=== PATIENT | female | born 1955 | race Hispanic/Latino ===

== ENCOUNTER → 2017-07-31 | Day surgery (SDC) | payer BC ==
[~2017-07-31] MED LIST: AMBIEN5 MG PO; CLONAZEPAM1 M1; ESTRADIOL1 MG PO; FENTANYL CITRATE/PF 100MCG/2 ML INJ ONE; HYDROCODONE; MIDAZOLAM HCL 2 MG/2 ML VIAL ONE; NORCO 5-325 TA1 EACH PO; OMEPRAZOLE40 MG PO; ONDANSETRON HCL INJ 2 MG/ML VIAL ONE; PROPOFOL IV EMULSION 10 MG/ML 20 ML VIAL ONE; SOMA250 MG; ZOCOR PO; metoprolol PO
== END | disposition home or self-care (01) ==
LOC: OR 09:49
PROVIDERS: ATTEND Internal Medicine Gastroenterology
DX: Z12.11 Encounter for screening for malignant neoplasm of colon (principal); K59.00 Constipation, unspecified; I10 Essential (primary) hypertension; E78.5 Hyperlipidemia, unspecified; F17.200 Nicotine dependence, unspecified, uncomplicated; Z80.0 Family history of malignant neoplasm of digestive organs; Z83.79 Family history of other diseases of the digestive system
CPT/HCPCS: 45378; 93005; J2250; J2405; G0121

== ENCOUNTER → 2017-08-02 | Outpatient (CLI) | payer BC ==
[~2017-08-02] MED LIST changes: -FENTANYL CITRATE/PF 100MCG/2 ML INJ ONE; +GADOBUTROL 10 MMOL/10 ML VIAL IV ONE; -MIDAZOLAM HCL 2 MG/2 ML VIAL ONE; -ONDANSETRON HCL INJ 2 MG/ML VIAL ONE; -PROPOFOL IV EMULSION 10 MG/ML 20 ML VIAL ONE
[2017-08-02 11:30] LABS: BLOOD UREA NITROGEN 8 mg/dL (7-26); BUN/CREATININE RATIO 12 (6-25); CREATININE, SERUM 0.67 mg/dL (0.57-1.11); EST GLOMERULAR FILTRATION RATE > 60 ML/MIN (60-)
--- NOTE | 2017-08-02 14:24 | Diagnostic Imaging Report ---
PROCEDURE: MRI ABDOMEN WOW TECHNIQUE: Axial T1 in and out of phase, axial T2, fat-sat, coronal T2 with and without fat-sat, axial ASSETT, axial DWI, and ADC MR images of the abdomen were performed after the intravenous administration of 5.5 cc of gadolinium. Axial T1, GRE dynamic images in precontrast, arterial, venous and delayed phases were obtained. Subtraction images were also performed. COMPARISON: None. INDICATIONS: Abdomen pain FINDINGS: LOWER THORAX: Lung bases are clear. LIVER: The liver is normal in size, measuring 10.9 cm in the right clavicular line and shows normal contour. No hepatic signal abnormality. 5-6 mm T2 hyperintense, nonenhancing lesion in hepatic segment (series 7, image 18 in series 13, image 119), consistent with a simple cyst. No other focal hepatic lesions. BILIARY: Mild central intrahepatic biliary ductal dilation, predominantly involving the left hepatic duct. Moderate to marked dilation of the common bile duct, which measures approximately 1.7 cm at the matty hepatis, and 1.0 cm at the pancreatic duct, which is increased since prior CT dated 03/26/2011. No intraluminal filling defects. Normal luminal contour, and taper into the ampulla. Cholecystectomy clips. PANCREAS: No mass or ductal dilatation. SPLEEN: No splenomegaly. ADRENALS: No nodules. KIDNEYS: No hydronephrosis or mass in the imaged portion of the kidneys. GI TRACT: Visualized bowel shows no dilation or obstruction. PERITONEUM / RETROPERITONEUM: No upper abdominal free fluid. LYMPH NODES: No upper abdominal lymphadenopathy. VESSELS: The celiac trunk, superior and inferior mesenteric, and bilateral renal arteries are patent. Portal, superior mesenteric, and splenic veins are patent. BONES AND SOFT TISSUES: Stable leftward curvature of the lumbar spine, with associated degenerative changes. No bone marrow abnormalities. Soft tissues are grossly unremarkable. IMPRESSION: 1. Mild central intrahepatic biliary ductal dilation, predominantly involving the left hepatic duct. Moderate to marked dilation of the common bile duct, which is more prominent than on prior exam, however, there is no MR evidence of choledocholithiasis or focal mass. Normal luminal contour, and tapering to the ampulla. Findings may represent post cholecystectomy status. 2. Otherwise, essentially unremarkable abdominal MRI Lokesh Jimenez M.D. Dictated by: Lokesh Jimenez M.D. on 08/02/2017 at 14:32 Electronically approved by: Lokesh Jimenez M.D. on 08/02/2017 at 14:32
--- NOTE | 2017-08-02 14:35 | Diagnostic Imaging Report ---
PROCEDURE:MRI PELVIS WITHOUT AND WITH CONTRAST COMPARISON:[facility], CT, CT ABDOMEN/PELVIS WO, 03/26/2011, 4:32. INDICATIONS:Abdomen pain TECHNIQUE:Axial and sagittal T2, coronal, and axial T1, sagittal, T2 fat sat images of the pelvis were performed before the intravenous administration of 5.5 cc of gadolinium. Axial T1 postcontrast images of the pelvis were obtained. FINDINGS: PELVIC ORGANS: Bladder is moderately distended and shows no focal lesion or wall thickening. Metallic susceptibility artifact at the right side and anterior to the bladder (series 13, image is 12-13), consistent with previously visualized postoperative changes and metallic clips. Uterus is absent. Ovaries are not visualized. No adnexal masses. GI TRACT: No bowel dilation or evidence of obstruction. LYMPH NODES: No distal retroperitoneal, pelvic, or inguinal adenopathy. VESSELS: Normal flow voids are identified. BONES AND SOFT TISSUES: No abnormal bone marrow signal. T2 hyperintense nonenhancing Tarlov's cysts are noted at S2. CONCLUSION: 1. Essentially unremarkable exam. Status post hysterectomy. The ovaries are not visualized and may be absent. Lokesh Jimenez M.D. Dictated by: Lokesh Jimenez M.D. on 08/02/2017 at 14:43 Electronically approved by: Lokesh Jimenez M.D. on 08/02/2017 at 14:43
== END ==
LOC: MRI 10:26
PROVIDERS: ATTEND Internal Medicine Gastroenterology
DX: R10.31 Right lower quadrant pain (principal)
CPT/HCPCS: 36415; 72197; 74183; 82565; 84520; A9585

== ENCOUNTER → 2020-05-03 | Day surgery (SDC) | payer MEDICARE, OTHER ==
[2020-04-29 11:23] LABS: BASOPHILS # (AUTO) 0.1 (0.0-0.1); EOSINOPHILS # (AUTO) 0.1 (0.0-0.4); EOSINOPHILS % 1.5 % (0.0-6.0); HEMATOCRIT 34.5 % (34.2-44.1); HEMOGLOBIN 10.7 g/dL (12.0-16.0); LYMPHOCYTES # (AUTO) 2.3 (1.0-3.2); LYMPHOCYTES % 33.6 % (18.0-39.1); MEAN CORPUSCULAR HEMOGLOBIN 26.5 pg (28-32); MEAN CORPUSCULAR VOLUME 85.4 fL (81-99); MONOCYTES # (AUTO) 0.5 (0.2-0.8); MONOCYTES % 7.7 % (4.4-11.3); NEUTROPHILS # (AUTO) 3.8 (2.1-6.9); NEUTROPHILS % 55.9 % (38.7-80.0); PLATELET COUNT 243 x10e3/uL (140-360); RED BLOOD COUNT 4.04 x10e6/uL (3.6-5.1); RED CELL DISTRIBUTION WIDTH 13.8 % (11.7-14.4)
[~2020-05-03] MED LIST changes: +BENAZEPRIL HCL5 MG PO; +BUPROPION HCL100 MG PO; +CRESTOR10 MG PO; +DICYCLOMINE HCL20 MG PO; +EPHEDRINE SULFATE INJ 50 MG/ML VIAL ONE; +FAMOTIDINE20 MG PO; +FENTANYL CITRATE/PF 100MCG/2 ML INJ ONE; -GADOBUTROL 10 MMOL/10 ML VIAL IV ONE; +GLYCOPYRROLATE INJ 0.2 MG/ML VIAL ONE; +LIDOCAINE HCL 2% LOCAL INJ 5 ML SDV VIAL INJ ONE; +MIDAZOLAM HCL 2 MG/2 ML VIAL ONE; +MIRALAX17 GM PO; +PROPOFOL IV EMULSION 10 MG/ML 20 ML VIAL ONE; +SOMA350 MG PO
[2020-05-03 11:00] VITALS: BP 108/57
== END | disposition home or self-care (01) ==
LOC: OR 06:44
PROVIDERS: ATTEND Internal Medicine Gastroenterology
DX: K29.50 Unspecified chronic gastritis without bleeding (principal); D12.2 Benign neoplasm of ascending colon; K31.89 Other diseases of stomach and duodenum; K21.9 Gastro-esophageal reflux disease without esophagitis; K57.30 Diverticulosis of large intestine without perforation or abscess without bleeding; K64.8 Other hemorrhoids; K44.9 Diaphragmatic hernia without obstruction or gangrene; K60.2 Anal fissure, unspecified; Z01.810 Encounter for preprocedural cardiovascular examination; Z01.812 Encounter for preprocedural laboratory examination
CPT/HCPCS: 36415; 43239; 45384; 85025; 88305; 88312; 88342; 93005; J2001; J2250; J2704; J3010; 45385

== ENCOUNTER 2020-08-21 11:17 | Emergency (ER) | payer MEDICARE ==
[~2020-08-21] VITALS: Ht 165.1 cm; Wt 63.5 kg
[~2020-08-21 11:17] MED LIST changes: -EPHEDRINE SULFATE INJ 50 MG/ML VIAL ONE; -FENTANYL CITRATE/PF 100MCG/2 ML INJ ONE; -GLYCOPYRROLATE INJ 0.2 MG/ML VIAL ONE; -LIDOCAINE HCL 2% LOCAL INJ 5 ML SDV VIAL INJ ONE; -MIDAZOLAM HCL 2 MG/2 ML VIAL ONE; -PROPOFOL IV EMULSION 10 MG/ML 20 ML VIAL ONE
[2020-08-21] MEDS ORDERED: SODIUM CHLORIDE 0.9% 1000ML 1,000 ML IV STA (11:28)
[2020-08-21] MEDS ORDERED: ONDANSETRON HCL INJ 2MG/ML 2ML 2 MG/ML VIAL IV NR ×2 (11:30→13:15)
[2020-08-21] MEDS ORDERED: PANTOPRAZOLE 40 MG 10ML VIAL IV NR (11:30)
[2020-08-21 11:55] LABS: BASOPHILS % 0.7 % (0.0-1.0); EOSINOPHILS # (AUTO) 0.1 (0.0-0.4); EOSINOPHILS % 2.3 % (0.0-6.0); HEMATOCRIT 33.3 % (34.2-44.1); HEMOGLOBIN 10.1 g/dL (12.0-16.0); LYMPHOCYTES # (AUTO) 2.1 (1.0-3.2); LYMPHOCYTES % 36.2 % (18.0-39.1); MEAN CORPUSCULAR HEMOGLOBIN 23.6 pg (28-32); MEAN CORPUSCULAR HGB CONC 30.3 g/dL (31-35); MEAN CORPUSCULAR VOLUME 77.8 fL (81-99); MONOCYTES # (AUTO) 0.5 (0.2-0.8); NEUTROPHILS # (AUTO) 2.9 (2.1-6.9); NEUTROPHILS % 51.6 % (38.7-80.0); PLATELET COUNT 253 x10e3/uL (140-360); RED BLOOD COUNT 4.28 x10e6/uL (3.6-5.1); RED CELL DISTRIBUTION WIDTH 15.9 % (11.7-14.4)
[2020-08-21 12:00] LABS: CLARITY,URINE CLEAR (CLEAR); COLOR,URINE YELLOW (YELLOW); LEUKOCYTE ESTERASE ,URINE NEGATIVE (NEGATIVE); NITRITE,URINE NEGATIVE (NEGATIVE)
[2020-08-21 12:01] LABS: KETONES,URINE NEGATIVE (NEGATIVE); PROTEIN,URINE DIPSTICK NEGATIVE (NEGATIVE); URINE UROBILINOGEN 0.2 mg/dL (0.2 - 1)
[2020-08-21 12:05] LABS: INR 0.92; PARTIAL THROMBOPLASTIN TIME 31.7 seconds (23.8-35.5); PROTHROMBIN TIME 12.9 seconds (11.9-14.5)
[2020-08-21 12:08] LABS: EPITHELIAL CELLS,URINE FEW /LPF; MUCUS,URINE FEW (RARE); RBC,URINE 0-5 /HPF (0-5); WBC,URINE (MAN) 0-5 /HPF (0-5)
[2020-08-21 12:13] LABS: ALANINE AMINOTRANSFERASE 29 IU/L (0-55); ALBUMIN 3.9 g/dL (3.5-5.0); ALBUMIN/GLOBULIN RATIO 1.4 (0.8-2.0); ALKALINE PHOSPHATASE 69 IU/L (40-150); BLOOD UREA NITROGEN 10 mg/dL (7-26); BUN/CREATININE RATIO 14 (6-25); CALCIUM 8.1 mg/dL (8.4-10.2); CARBON DIOXIDE 25 mmol/L (22-29); CHLORIDE 105 mmol/L (98-107); CREATINE KINASE 156 IU/L (29-168); CREATININE, SERUM 0.69 mg/dL (0.57-1.11); EST GLOMERULAR FILTRATION RATE > 60 ML/MIN (60-); GLUCOSE 88 mg/dL (74-118); LIPASE 74 U/L (8-78); MAGNESIUM 1.7 MG/DL (1.3-2.1); SODIUM 138 mmol/L (136-145)
[2020-08-21] MEDS ORDERED: MORPHINE SULFATE INJ 2 MG/ML SYR IV NR (13:15)
[2020-08-21] MEDS ORDERED: DICYCLOMINE HCL20 MG PO (13:42)
[2020-08-21] MEDS ORDERED: ONDANSETRON ODT8 MG PO (13:42)
== END 2020-08-21 14:07 | disposition home or self-care (01) ==
LOC: ER 11:34
DX: R10.30 Lower abdominal pain, unspecified (principal); K52.9 Noninfective gastroenteritis and colitis, unspecified; I10 Essential (primary) hypertension; E78.5 Hyperlipidemia, unspecified; G47.00 Insomnia, unspecified; F41.9 Anxiety disorder, unspecified; F32.9 Major depressive disorder, single episode, unspecified; Z98.0 Intestinal bypass and anastomosis status; Z11.52 Encounter for screening for COVID-19
CPT/HCPCS: 36415; 71045; 74176; 80053; 81001; 82550; 82553; 83690; 83735; 84484; 85025; 85610; 85730; 87086; 99284; C9113; J2270; J2405; J7030; U0002

== ENCOUNTER 2020-11-24 14:10 | Inpatient (IN) | payer MEDICARE ==
[~2020-11-24] VITALS: Ht 165.1 cm; Wt 63.5 kg
[~2020-11-24 14:10] MED LIST changes: +ONDANSETRON ODT8 MG PO
[2020-11-24 14:45] LABS: BASOPHILS # (AUTO) 0.1 (0.0-0.1); EOSINOPHILS # (AUTO) 0.2 (0.0-0.4); EOSINOPHILS % 2.6 % (0.0-6.0); HEMATOCRIT 29.8 % (34.2-44.1); LYMPHOCYTES % 34.1 % (18.0-39.1); MEAN CORPUSCULAR HEMOGLOBIN 22.2 pg (28-32); MEAN CORPUSCULAR HGB CONC 30.2 g/dL (31-35); MEAN CORPUSCULAR VOLUME 73.6 fL (81-99); MONOCYTES # (AUTO) 0.5 (0.2-0.8); NEUTROPHILS # (AUTO) 3.2 (2.1-6.9); NEUTROPHILS % 54.1 % (38.7-80.0); PLATELET COUNT 257 x10e3/uL (140-360); RED BLOOD COUNT 4.05 x10e6/uL (3.6-5.1); RED CELL DISTRIBUTION WIDTH 17.4 % (11.7-14.4)
[2020-11-24 15:03] LABS: ALANINE AMINOTRANSFERASE 23 IU/L (0-55); ALBUMIN 3.8 g/dL (3.5-5.0); ALBUMIN/GLOBULIN RATIO 1.4 (0.8-2.0); ALKALINE PHOSPHATASE 76 IU/L (40-150); ANION GAP 13.2 mmol/L (8-16); BLOOD UREA NITROGEN 15 mg/dL (7-26); BUN/CREATININE RATIO 20 (6-25); CARBON DIOXIDE 24 mmol/L (22-29); CHLORIDE 108 mmol/L (98-107); CREATININE, SERUM 0.74 mg/dL (0.57-1.11); EST GLOMERULAR FILTRATION RATE > 60 ML/MIN (60-); GLUCOSE 92 mg/dL (74-118); POTASSIUM 4.2 mmol/L (3.5-5.1); SODIUM 141 mmol/L (136-145)
[2020-11-24 15:05] LABS: CLARITY,URINE CLEAR (CLEAR); COLOR,URINE YELLOW (YELLOW); LEUKOCYTE ESTERASE ,URINE NEGATIVE (NEGATIVE)
[2020-11-24 15:06] LABS: BACTERIA,URINE FEW /HPF; EPITHELIAL CELLS,URINE FEW /LPF; KETONES,URINE NEGATIVE (NEGATIVE); NITRITE,URINE NEGATIVE (NEGATIVE); PROTEIN,URINE DIPSTICK NEGATIVE (NEGATIVE); RBC,URINE 0-5 /HPF (0-5); URINE UROBILINOGEN 0.2 mg/dL (0.2 - 1); WBC,URINE (MAN) 0-5 /HPF (0-5)
[2020-11-24] MEDS ORDERED: MORPHINE SULFATE INJ 4 MG/ML INJ 1ML IV PRN (16:45)
[2020-11-24] MEDS ORDERED: MORPHINE SULFATE INJ 2 MG/ML SYR IV PRN (16:45)
[2020-11-24] MEDS ORDERED: HYDROMORPHONE 1MG/1ML INJ IV STA (16:48)
[2020-11-24] MEDS: ONDANSETRON HCL INJ 2MG/ML 2ML 2 MG/ML VIAL IV PRN ×2 (17:12→23:20)
[2020-11-24] MEDS: SODIUM CHLORIDE 0.9% 1000ML 1,000 ML IV SCH (17:12)
[2020-11-24] MEDS ORDERED: BENAZEPRIL HCL10 MG PO (17:43)
[2020-11-24] MEDS ORDERED: HYDROCHLOROTHIA25 MG PO (17:43)
[2020-11-24] MEDS ORDERED: DICYCLOMINE HCL10 MG PO (17:45)
[2020-11-24] MEDS ORDERED: CRESTOR20 MG PO (17:45)
[2020-11-24] MEDS ORDERED: LOMOTIL TABLET1 EACH PO (17:45)
[2020-11-24 19:38] VITALS: BP 125/72
[2020-11-24 20:00] VITALS: BP 125/72
[2020-11-24 21:00] VITALS: BP 125/72
[2020-11-24] MEDS ORDERED: ACETAMINOPHEN 325 MG TAB PO PRN (23:15)
[2020-11-24] MEDS ORDERED: CARISOPRODOL 350 MG TAB PO PRN (23:15)
[2020-11-24] MEDS ORDERED: POLYETHYLENE GLYCOL 3350 17 GM PACK PO PRN (23:15)
[2020-11-24] MEDS ORDERED: DICYCLOMINE HCL 10 MG CAP PO PRN (23:15)
[2020-11-24] MEDS: MORPHINE SULFATE INJ 2 MG/ML SYR IV PRN (23:20)
[2020-11-24] MEDS ORDERED: HYDRALAZINE HCL 20 MG/ML VIAL IV PRN (23:30)
[2020-11-25] VITALS (7 sets, daily range): BP systolic 116–141; BP diastolic 58–76
[2020-11-25] MEDS: HYDROCODONE/APAP 5MG-325MG TAB PO PRN ×2 (00:06→12:06)
[2020-11-25] MEDS: SODIUM CHLORIDE 0.9% 1000ML 1,000 ML IV SCH ×3 (00:45→18:34)
[2020-11-25] MEDS ORDERED: POTASSIUM CHLO20 ME1 PO (01:19)
[2020-11-25] MEDS ORDERED: MIRAPEX0.25 MG PO (01:19)
[2020-11-25] MEDS ORDERED: FLAGYL500 MG PO (01:19)
[2020-11-25] MEDS ORDERED: PROMETHAZINE HC25 M1 PO (01:19)
[2020-11-25] MEDS ORDERED: ZOLPIDEM TARTRAT5 MG PO (01:19)
[2020-11-25] MEDS: LORAZEPAM INJ 2 MG/ML VIAL IV PRN ×2 (02:48→23:40)
[2020-11-25] MEDS: MORPHINE SULFATE INJ 2 MG/ML SYR IV PRN ×2 (04:46→09:30)
[2020-11-25] MEDS: ONDANSETRON HCL INJ 2MG/ML 2ML 2 MG/ML VIAL IV PRN ×2 (04:46→09:30)
[2020-11-25 06:47] LABS: BASOPHILS % 0.6 % (0.0-1.0); EOSINOPHILS # (AUTO) 0.1 (0.0-0.4); EOSINOPHILS % 2.5 % (0.0-6.0); HEMATOCRIT 29.4 % (34.2-44.1); HEMOGLOBIN 8.8 g/dL (12.0-16.0); LYMPHOCYTES # (AUTO) 1.9 (1.0-3.2); LYMPHOCYTES % 39.4 % (18.0-39.1); MEAN CORPUSCULAR HEMOGLOBIN 22.2 pg (28-32); MEAN CORPUSCULAR HGB CONC 29.9 g/dL (31-35); MEAN CORPUSCULAR VOLUME 74.2 fL (81-99); MONOCYTES # (AUTO) 0.4 (0.2-0.8); MONOCYTES % 8.5 % (4.4-11.3); NEUTROPHILS # (AUTO) 2.4 (2.1-6.9); NEUTROPHILS % 48.8 % (38.7-80.0); PLATELET COUNT 221 x10e3/uL (140-360); RED BLOOD COUNT 3.96 x10e6/uL (3.6-5.1); RED CELL DISTRIBUTION WIDTH 17.4 % (11.7-14.4)
[2020-11-25 07:09] LABS: ALANINE AMINOTRANSFERASE 21 IU/L (0-55); ALBUMIN 3.4 g/dL (3.5-5.0); ALBUMIN/GLOBULIN RATIO 1.4 (0.8-2.0); ALKALINE PHOSPHATASE 71 IU/L (40-150); ANION GAP 12.3 mmol/L (8-16); BLOOD UREA NITROGEN 13 mg/dL (7-26); BUN/CREATININE RATIO 19 (6-25); CALCIUM 7.9 mg/dL (8.4-10.2); CARBON DIOXIDE 26 mmol/L (22-29); CHLORIDE 110 mmol/L (98-107); EST GLOMERULAR FILTRATION RATE > 60 ML/MIN (60-); GLUCOSE 90 mg/dL (74-118); POTASSIUM 4.3 mmol/L (3.5-5.1); SODIUM 144 mmol/L (136-145)
[2020-11-25 09:23] LABS: FERRITIN 7.51 ng/mL (4.63-204.00)
[2020-11-25] MEDS: PANTOPRAZOLE 40 MG 10ML VIAL IV SCH ×2 (09:29→17:00)
[2020-11-25] MEDS: BENAZEPRIL HCL 10 MG TAB PO SCH (09:30)
[2020-11-25] MEDS ORDERED: DICYCLOMINE HCL 20 MG TAB PO PRN (16:15)
[2020-11-25] MEDS ORDERED: FERROUS SULFATE 325 MG TAB PO ONE (17:00)
[2020-11-25 17:12] LABS: THYROID STIMULATING HORMONE 2.071 uIU/mL (0.350-4.940)
[2020-11-25] MEDS ORDERED: TRAZODONE HCL 50 MG TAB PO SCH (23:45)
[2020-11-26] MEDS: SODIUM CHLORIDE 0.9% 1000ML 1,000 ML IV SCH ×2 (05:12→08:45)
[2020-11-26 07:05] LABS: BASOPHILS % 0.6 % (0.0-1.0); EOSINOPHILS # (AUTO) 0.1 (0.0-0.4); EOSINOPHILS % 0.9 % (0.0-6.0); HEMATOCRIT 30.3 % (34.2-44.1); HEMOGLOBIN 9.1 g/dL (12.0-16.0); LYMPHOCYTES # (AUTO) 1.2 (1.0-3.2); LYMPHOCYTES % 22.5 % (18.0-39.1); MEAN CORPUSCULAR HEMOGLOBIN 22.1 pg (28-32); MEAN CORPUSCULAR VOLUME 73.5 fL (81-99); MONOCYTES # (AUTO) 0.4 (0.2-0.8); MONOCYTES % 7.1 % (4.4-11.3); NEUTROPHILS # (AUTO) 3.7 (2.1-6.9); NEUTROPHILS % 68.3 % (38.7-80.0); PLATELET COUNT 202 x10e3/uL (140-360); RED BLOOD COUNT 4.12 x10e6/uL (3.6-5.1); RED CELL DISTRIBUTION WIDTH 17.2 % (11.7-14.4)
[2020-11-26 07:25] LABS: ANION GAP 13.9 mmol/L (8-16); BLOOD UREA NITROGEN 6 mg/dL (7-26); BUN/CREATININE RATIO 9 (6-25); CARBON DIOXIDE 21 mmol/L (22-29); CHLORIDE 112 mmol/L (98-107); CREATININE, SERUM 0.65 mg/dL (0.57-1.11); EST GLOMERULAR FILTRATION RATE > 60 ML/MIN (60-); GLUCOSE 90 mg/dL (74-118); POTASSIUM 3.9 mmol/L (3.5-5.1); SODIUM 143 mmol/L (136-145)
[2020-11-26 07:48] VITALS: BP 141/69
[2020-11-26 08:00] VITALS: BP 141/69
[2020-11-26] MEDS: PANTOPRAZOLE 40 MG 10ML VIAL IV SCH (08:55)
[2020-11-26] MEDS: BENAZEPRIL HCL 10 MG TAB PO SCH (08:56)
[2020-11-26] MEDS ORDERED: ASCORBIC ACID 500 MG TAB PO SCH (09:00)
[2020-11-26 11:41] VITALS: BP 142/67
== END 2020-11-26 15:35 | disposition home or self-care (01) | DRG 390 ==
LOC: ER 14:40 → ERHOLD 16:46 → MED/SURG3 18:04 → OBSVTOIN 11-25 14:09
PROVIDERS: ADMIT Internal Medicine; ATTEND Internal Medicine
DX: K56.51 Intestinal adhesions [bands], with partial obstruction (principal); I10 Essential (primary) hypertension; E78.5 Hyperlipidemia, unspecified; D64.9 Anemia, unspecified; Z20.822 Contact with and (suspected) exposure to COVID-19; F32.9 Major depressive disorder, single episode, unspecified; F41.9 Anxiety disorder, unspecified; G89.29 Other chronic pain; Z91.041 Radiographic dye allergy status; Z91.040 Latex allergy status; K29.70 Gastritis, unspecified, without bleeding; K44.9 Diaphragmatic hernia without obstruction or gangrene; K64.8 Other hemorrhoids
CPT/HCPCS: 36415; 74176; 80048; 80053; 81001; 82150; 82728; 83540; 83690; 83735; 84443; 84466; 85025; 93005; 99284; G0378; J1170; J2060; J2270; J2405; J7030; U0002

== ENCOUNTER → 2022-06-13 | Day surgery (SDC) | payer MEDICARE ==
[2022-06-12 14:21] LABS: BASOPHILS % 0.6 % (0.0-1.0); EOSINOPHILS # (AUTO) 0.1 (0.0-0.4); EOSINOPHILS % 2.2 % (0.0-6.0); HEMATOCRIT 29.4 % (34.2-44.1); HEMOGLOBIN 7.9 g/dL (12.0-16.0); LYMPHOCYTES # (AUTO) 2.1 (1.0-3.2); LYMPHOCYTES % 32.6 % (18.0-39.1); MEAN CORPUSCULAR HEMOGLOBIN 19.2 pg (28-32); MEAN CORPUSCULAR HGB CONC 26.9 g/dL (31-35); MEAN CORPUSCULAR VOLUME 71.4 fL (81-99); MONOCYTES # (AUTO) 0.5 (0.2-0.8); MONOCYTES % 7.8 % (4.4-11.3); NEUTROPHILS # (AUTO) 3.7 (2.1-6.9); NEUTROPHILS % 56.5 % (38.7-80.0); PLATELET COUNT 225 x10e3/uL (140-360); RED BLOOD COUNT 4.12 x10e6/uL (3.6-5.1); RED CELL DISTRIBUTION WIDTH 17.1 % (11.7-14.4)
[~2022-06-13] MED LIST changes: +BENAZEPRIL HCL10 MG PO; +CITRACAL SOFT1 EACH PO; +CRESTOR20 MG PO; +DICYCLOMINE HCL10 MG PO; +FLAGYL500 MG PO; +HYDROCHLOROTHIA25 MG PO; +LOMOTIL TABLET1 EACH PO; +MIRAPEX0.25 MG PO; +POTASSIUM CHLO20 ME1 PO; +PROBIOTIC & AC1 EACH PO; +PROMETHAZINE HC25 M1 PO; +PROPOFOL IV EMULSION 10 MG/ML 20 ML VIAL ONE; +ZOLPIDEM TARTRAT5 MG PO
[2022-06-13 11:07] VITALS: BP 128/70
== END | disposition home or self-care (01) ==
LOC: OR 07:01
PROVIDERS: ATTEND Internal Medicine Gastroenterology
DX: K31.A12 Gastric intestinal metaplasia without dysplasia, involving the body (corpus) (principal); K29.50 Unspecified chronic gastritis without bleeding; K44.9 Diaphragmatic hernia without obstruction or gangrene; K57.90 Diverticulosis of intestine, part unspecified, without perforation or abscess without bleeding; K60.2 Anal fissure, unspecified; R19.5 Other fecal abnormalities; R19.4 Change in bowel habit; R15.9 Full incontinence of feces; K64.8 Other hemorrhoids; D64.9 Anemia, unspecified; M06.9 Rheumatoid arthritis, unspecified; I10 Essential (primary) hypertension; E78.5 Hyperlipidemia, unspecified; I49.1 Atrial premature depolarization; Z91.041 Radiographic dye allergy status; Z91.040 Latex allergy status; Z01.810 Encounter for preprocedural cardiovascular examination; Z01.812 Encounter for preprocedural laboratory examination; Z79.899 Other long term (current) drug therapy
CPT/HCPCS: 36415; 43239; 85025; 93005; J2704

== ENCOUNTER 2024-06-05 15:05 | Emergency (ER) | payer MEDICARE ==
[~2024-06-05] VITALS: Ht 165.1 cm; Wt 65.3 kg
[~2024-06-05 15:05] MED LIST changes: +LEVOFLOXACIN500 MG PO; -PROPOFOL IV EMULSION 10 MG/ML 20 ML VIAL ONE
[2024-06-05 15:38] VITALS: TEMP 98
[2024-06-05 16:12] LABS: BASOPHILS % 0.2 % (0.0-1.0); EOSINOPHILS # (AUTO) 0.1 (0.0-0.4); EOSINOPHILS % 1.4 % (0.0-6.0); HEMATOCRIT 39.2 % (34.2-44.1); HEMOGLOBIN 12.3 g/dL (12.0-16.0); LYMPHOCYTES # (AUTO) 1.6 (1.0-3.2); LYMPHOCYTES % 32.3 % (18.0-39.1); MEAN CORPUSCULAR HEMOGLOBIN 29.1 pg (28-32); MEAN CORPUSCULAR HGB CONC 31.4 g/dL (31-35); MEAN CORPUSCULAR VOLUME 92.9 fL (81-99); MONOCYTES # (AUTO) 0.5 (0.2-0.8); MONOCYTES % 9.5 % (4.4-11.3); NEUTROPHILS # (AUTO) 2.7 (2.1-6.9); NEUTROPHILS % 56.2 % (38.7-80.0); PLATELET COUNT 190 x10e3/uL (140-360); RED BLOOD COUNT 4.22 x10e6/uL (3.6-5.1); RED CELL DISTRIBUTION WIDTH 13.6 % (11.7-14.4); WHITE BLOOD COUNT 4.86 x10e3/uL (4.8-10.8)
[2024-06-05] MEDS ORDERED: Morphine 4mg INJECTION 4 MG/ML INJ IV ONE (16:15)
[2024-06-05 16:23] LABS: ALBUMIN 3.6 g/dL (3.5-5.0); ALBUMIN/GLOBULIN RATIO 1.4 (0.8-2.0); ANION GAP 16.7 mmol/L (8-16); BILIRUBIN,TOTAL 0.6 mg/dL (0.2-1.2); CALCIUM 8.7 mg/dL (8.4-10.2); CREATININE, SERUM 0.68 mg/dL (0.57-1.11); POTASSIUM 3.7 mmol/L (3.5-5.1); TOTAL PROTEIN 6.2 g/dL (6.5-8.1)
[2024-06-05] MEDS: SODIUM CHLORIDE 0.9% 1000ML 1,000 ML IV ONE (18:43)
[2024-06-05] MEDS: KETOROLAC TROMETHAMINE 30 MG/ML VIAL IV STA (18:43)
[2024-06-05] MEDS: METOCLOPRAMIDE HCL 10 MG/2ML VIAL IV ONE (18:44)
[2024-06-05 18:48] VITALS: PULSE 61; RESP 16
[2024-06-05] MEDS ORDERED: CEPHALEXIN500 MG PO (18:55)
[2024-06-05 21:00] VITALS: BP 137/73; PULSE 61; RESP 16; TEMP 98; O2SAT 100
== END 2024-06-05 19:38 | disposition home or self-care (01) ==
LOC: ER 16:00
DX: R19.7 Diarrhea, unspecified (principal); R10.30 Lower abdominal pain, unspecified; R11.0 Nausea; I10 Essential (primary) hypertension; R73.03 Prediabetes; E78.5 Hyperlipidemia, unspecified; G47.00 Insomnia, unspecified
CPT/HCPCS: 36415; 74176; 80053; 83690; 85025; 99284; J1885; J2765; J7030

== ENCOUNTER 2025-01-21 17:07 | Emergency (ER) | payer MEDICARE ==
[~2025-01-21] VITALS: Ht 152.4 cm; Wt 65.8 kg
[~2025-01-21 17:07] MED LIST changes: +CEPHALEXIN500 MG PO
[2025-01-21 18:59] LABS: CLARITY,URINE SL CLOUDY (CLEAR); COLOR,URINE YELLOW (YELLOW)
[2025-01-21 19:00] LABS: BILIRUBIN,URINE NEGATIVE (NEGATIVE); GLUCOSE, URINE NEGATIVE (NEGATIVE); KETONES,URINE NEGATIVE (NEGATIVE); LEUKOCYTE ESTERASE ,URINE NEGATIVE (NEGATIVE); NITRITE,URINE NEGATIVE (NEGATIVE); PH,URINE 6 (5 - 7); PROTEIN,URINE DIPSTICK NEGATIVE (NEGATIVE); URINE UROBILINOGEN 0.2 mg/dL (0.2 - 1)
[2025-01-21 19:10] LABS: RBC,URINE 0-5 /HPF (0-5)
[2025-01-21] MEDS: KETOROLAC TROMETHAMINE 60 MG/2 ML VIAL IM STA (21:27)
[2025-01-21 21:28] LABS: BASOPHILS # (AUTO) 0.1 (0.0-0.1); BASOPHILS % 0.9 % (0.0-1.0); EOSINOPHILS # (AUTO) 0.1 (0.0-0.4); EOSINOPHILS % 2.2 % (0.0-6.0); HEMOGLOBIN 12.7 g/dL (12.0-16.0); LYMPHOCYTES # (AUTO) 2.3 (1.0-3.2); LYMPHOCYTES % 38.6 % (18.0-39.1); MEAN CORPUSCULAR HEMOGLOBIN 29.5 pg (28-32); MEAN CORPUSCULAR HGB CONC 34.3 g/dL (31-35); MONOCYTES # (AUTO) 0.4 (0.2-0.8); MONOCYTES % 7.2 % (4.4-11.3); NEUTROPHILS % 50.8 % (38.7-80.0); PLATELET COUNT 201 x10e3/uL (140-360); RED CELL DISTRIBUTION WIDTH 13.5 % (11.7-14.4); WHITE BLOOD COUNT 5.83 x10e3/uL (4.8-10.8)
[2025-01-21 21:52] LABS: ALANINE AMINOTRANSFERASE 27 IU/L (0-55); ALBUMIN 4.4 g/dL (3.5-5.0); ALBUMIN/GLOBULIN RATIO 1.8 (0.8-2.0); ALKALINE PHOSPHATASE 65 IU/L (40-150); ANION GAP 14.2 mmol/L (8-16); BILIRUBIN,TOTAL 0.8 mg/dL (0.2-1.2); BLOOD UREA NITROGEN < 5 mg/dL (7-26); CALCIUM 9.2 mg/dL (8.4-10.2); CARBON DIOXIDE 27 mmol/L (22-29); CHLORIDE 102 mmol/L (98-107); CREATININE, SERUM 0.69 mg/dL (0.57-1.11); EST GLOMERULAR FILTRATION RATE 93 ML/MIN (>=60); GLUCOSE 96 mg/dL (74-118); POTASSIUM 4.2 mmol/L (3.5-5.1); SODIUM 139 mmol/L (136-145); TOTAL PROTEIN 6.8 g/dL (6.5-8.1)
[2025-01-21 21:53] LABS: BUN/CREATININE RATIO 7 (6-25)
[2025-01-21] MEDS ORDERED: ACETAMINOPHEN-1 EAC4 PO (22:27)
[2025-01-21] MEDS ORDERED: FLOMAX0.4 MG PO (22:27)
[2025-01-21 23:15] VITALS: PULSE 75; RESP 18; TEMP 98.6; O2SAT 98
== END 2025-01-21 23:15 | disposition home or self-care (01) ==
LOC: ER 18:05
DX: R33.9 Retention of urine, unspecified (principal); I10 Essential (primary) hypertension; E78.5 Hyperlipidemia, unspecified; R73.03 Prediabetes; G47.00 Insomnia, unspecified; F41.9 Anxiety disorder, unspecified; F32.A Depression, unspecified
CPT/HCPCS: 36415; 51702; 74176; 80053; 81001; 83690; 85025; 87086; 99284; J1885; 51700

== ENCOUNTER 2025-01-29 16:32 | Emergency (ER) | payer MEDICARE ==
[~2025-01-29] VITALS: Ht 165.1 cm; Wt 65.8 kg
[~2025-01-29 16:32] MED LIST changes: +ACETAMINOPHEN-1 EAC4 PO; +FLOMAX0.4 MG PO
[2025-01-29 18:25] VITALS: PULSE 73; RESP 19; TEMP 98.2; O2SAT 100
== END 2025-01-29 18:40 | disposition home or self-care (01) ==
LOC: ER 18:30
DX: I10 Essential (primary) hypertension (principal); E78.5 Hyperlipidemia, unspecified; R73.03 Prediabetes; G47.00 Insomnia, unspecified; F41.9 Anxiety disorder, unspecified; F32.A Depression, unspecified; Z98.0 Intestinal bypass and anastomosis status
CPT/HCPCS: 99282

== ENCOUNTER 2025-05-26 13:29 | Emergency (ER) | payer MEDICARE ==
[~2025-05-26] VITALS: Ht 152.4 cm; Wt 81.6 kg
[2025-05-26 17:21] VITALS: PULSE 73; RESP 16; TEMP 98
[2025-05-26] MEDS ORDERED: SODIUM CHLORIDE 0.9% 1000ML 1,000 ML IV STA (17:36)
[2025-05-26 17:49] LABS: BASOPHILS % 0.6 % (0.0-1.0); EOSINOPHILS % 1.4 % (0.0-6.0); LYMPHOCYTES % 17.3 % (18.0-39.1); MONOCYTES % 5.1 % (4.4-11.3); NEUTROPHILS % 75.5 % (38.7-80.0); RED CELL DISTRIBUTION WIDTH 13.0 % (11.7-14.4)
[2025-05-26 18:07] LABS: INR 0.99
[2025-05-26 18:11] LABS: EST GLOMERULAR FILTRATION RATE 82.0 ML/MIN (>=60)
[2025-05-26 18:28] LABS: LEUKOCYTE ESTERASE ,URINE MODERATE (NEGATIVE); PROTEIN,URINE DIPSTICK NEGATIVE (NEGATIVE); URINE UROBILINOGEN 0.2 mg/dL (0.2 - 1)
[2025-05-26 18:44] LABS: EPITHELIAL CELLS,URINE FEW /LPF; WBC,URINE (MAN) 21-50 /HPF (0-5)
[2025-05-26] MEDS ORDERED: KETOROLAC TROMETHAMINE 30 MG/ML VIAL IV STA (19:13)
[2025-05-26] MEDS ORDERED: ONDANSETRON HCL INJ 2MG/ML 2ML 2 MG/ML VIAL IV STA (19:13)
[2025-05-26] MEDS ORDERED: PYRIDIUM100 MG PO (19:59)
[2025-05-26] MEDS ORDERED: AUGMENTIN 500-1 EACH PO (19:59)
[2025-05-26 20:13] VITALS: BP 116/69; PULSE 62; RESP 16; TEMP 98; O2SAT 96
== END 2025-05-26 20:24 | disposition home or self-care (01) ==
LOC: ER 18:03
DX: R10.33 Periumbilical pain (principal); N39.0 Urinary tract infection, site not specified; R11.2 Nausea with vomiting, unspecified; I10 Essential (primary) hypertension; R73.03 Prediabetes; E78.5 Hyperlipidemia, unspecified; F41.9 Anxiety disorder, unspecified; F32.A Depression, unspecified; G47.00 Insomnia, unspecified; Z98.0 Intestinal bypass and anastomosis status
CPT/HCPCS: 36415; 74176; 80053; 81001; 83735; 85025; 85610; 85730; 87086; 87186; 99284